=== PATIENT | male | born 1985 | race Caucasian/White ===

== ENCOUNTER → 2020-09-29 14:36 | Outpatient (CLI) | payer OTHER, BC, SELFPAY ==
--- NOTE | ~2020-09-29 | MR_ITS ---
EXAMINATION: MR cervical spine wo con EXAM DATE: 09/29/2020 15:19 INDICATION: M54.2 - Cervicalgia, left arm numbness. TECHNIQUE: Multi-sequential, multiplanar MR images of the cervical spine were obtained without contra st. Axial T2, axial T2 MERGE sequence. Sagittal T1, T2, T2 fat saturation images also obtained. Com parison is made to prior examination from 05/23/2016. FINDINGS: Cervical fusion C5-7 with anterior plate and interbody devices. The spinal cord signal int ensity and intrinsic morphology is normal. Cervicomedullary junction is normal in appearance. The bryan tebral bodies are aligned in the AP dimension. There are no suspicious marrow signal abnormalities. P araspinal soft tissue is unremarkable. Level by level evaluation: C2-C3: Disc does not extend beyond the endplate margin. Uncovertebral joint arthropathy: Mild left. Facet joint arthropathy: Mild bilateral. Neural foraminal stenosis: No stenosis. Central canal stenosis: No stenosis. C3-C4: There is a mild diffuse disc bulge asymmetric to the right Uncovertebral joint arthropathy: Moderate right, mild left. Facet joint arthropathy: Mild bilateral. Neural foraminal stenosis: Moderate right. Central canal stenosis: Mild. C4-C5: There is a mild diffuse disc bulge. Uncovertebral joint arthropathy: Mild bilateral. Facet joint arthropathy: Moderate right, mild left. Neural foraminal stenosis: Mild right. Central canal stenosis: No stenosis. C5-C6: This level is fused. Uncovertebral joint arthropathy: Fused. Facet joint arthropathy: Partially fused. Neural foraminal stenosis: No stenosis. Central canal stenosis: No stenosis. C6-C7: This level is fused. Uncovertebral joint arthropathy: Mild to moderate bilateral. Facet joint arthropathy: Mild bilateral. Neural foraminal stenosis: Mild right. Central canal stenosis: No stenosis. C7-T1: Disc does not extend beyond the endplate margin. Uncovertebral joint arthropathy: Mild to moderate bilateral. Facet joint arthropathy: Mild to moderate bilateral. Neural foraminal stenosis: Mild to moderate right, mild left. Central canal stenosis: No stenosis. IMPRESSION: 1. Cervical spondylosis as detailed above, with the right C4-5 neural foramina most narrowed. Reviewed, dictated and finalized at location A.
== END ==
PROVIDERS: PCP Family Medicine; Visit Provider Family Medicine
DX: M47.892 Other spondylosis, cervical region (principal)
CPT/HCPCS: 72141

== ENCOUNTER → 2021-03-29 01:23 | Outpatient (CLI) | payer BC, SELFPAY ==
[2021-03-29 13:13] LABS: Influenza A QL RT-PCR Negative (Negative); Influenza B QL RT-PCR Negative (Negative); SARS-CoV-2 RNA PCR Negative
== END ==
PROVIDERS: PCP Family Medicine; Visit Provider Physician Assistant
DX: R05.9 Cough, unspecified (principal); R09.89 Other specified symptoms and signs involving the circulatory and respiratory systems; Z20.822 Contact with and (suspected) exposure to COVID-19
CPT/HCPCS: 87502; C9803; U0003; U0005

== ENCOUNTER 2022-12-31 11:19 | Outpatient (CLI) | payer BC, SELFPAY ==
[2022-12-31 12:16] LABS: Influenza A QL RT-PCR Negative (Negative); Influenza B QL RT-PCR Negative (Negative); SARS-CoV-2 RNA PCR Negative (Negative)
== END 2022-12-31 11:20 | disposition home or self-care (01) ==
LOC: ANHLAB 11:21
PROVIDERS: PCP Family Medicine; Visit Provider Physician Assistant
DX: R50.9 Fever, unspecified (principal); Z20.822 Contact with and (suspected) exposure to COVID-19
CPT/HCPCS: 87636